=== PATIENT | female | born 1980 | race Caucasian/White ===

== ENCOUNTER 2021-10-18 17:19 | Inpatient (IN) ==
[2021-10-18 18:30] LABS: Basophils % 0.7 %; Eosinophils # 0.1 K/mcL (0.0-0.6); Eosinophils % 2.1 %; Hematocrit 38.8 % (35.3-44.9); Hemoglobin 12.7 g/dL (11.5-15.4); Immature Granulocytes % 0.2 % (0-4); Lymphocytes # 0.8 K/mcL (0.6-4.6); Lymphocytes % 18.2 %; Mean Corpuscular HGB Conc 32.7 g/dL (31.6-35.5); Mean Corpuscular Hemoglobin 27.7 pg (28.0-33.3); Mean Corpuscular Volume 84.5 fL (83.0-100.0); Mean Platelet Volume 9.9 fL (9.4-12.4); Monocytes # 0.2 K/mcL (0.0-1.3); Monocytes % 5.7 %; Neutrophils # 3.1 K/mcL (1.6-8.9); Platelet Count 242 K/mcL (140-400); Red Blood Count 4.59 M/mcL (3.82-4.97); Red Cell Distribution Width 13.3 % (11.5-14.5); Segmented Neutrophils % 73.1 %; White Blood Count 4.2 K/mcL (4.3-11.1)
[2021-10-18 18:43] LABS: BUN/Creatinine Ratio 12 (6-26); Blood Urea Nitrogen 9 mg/dL (6-20); Calcium 9.8 mg/dL (8.6-10.3); Carbon Dioxide 22 mEq/L (23-29); Chloride 99 mEq/L (98-107); Glucose 61 mg/dL (70-105); Osmolality,Calculated 281 (280-300); Potassium 4.3 mEq/L (3.5-5.1); Sodium 137 mEq/L (136-145); eGFR For African Americans > 60 (> 60); eGFR For Non-African Americans > 60 (> 60)
[2021-10-18 19:00] LABS: Bilirubin,Urine Negative (Negative); Blood,Urine Negative (Negative); Clarity,Urine Clear (Clear); Color,Urine Light-Yellow (Yellow); Glucose,Urine (UA) Normal (Normal); Ketones,Urine >150 mg/dL (Negative); Leukocyte Esterase,Urine Negative (Negative); Mucus,Urine Few per lpf (None-Few); Nitrite,Urine Negative (Negative); PH,Urine 5.5 pH Units (5.0-8.0); Protein,Urine 30 mg/dL (Neg-Trace); RBC,Urine 0-3 per hpf (0-3); Specific Gravity,Urine 1.023 (1.010-1.025); Squamous Epithelial Cell,Urine Few per hpf (None-Few); Urobilinogen,Urine Normal (Normal); WBC,Urine 0-3 per hpf (0-3)
[2021-10-18] MEDS: 0.9 % Sodium Chloride 1,000 ML IVC SCH (22:53)
[2021-10-18] MEDS ORDERED: Ondansetron 4 MG/2 ML VIAL IVP ONE (23:28)
[2021-10-19] MEDS ORDERED: Isovue-370 500 ML BOTTLE IVP ONE (00:40)
[2021-10-19] MEDS ORDERED: Prochlorperazine 10 MG/2 ML VIAL IVP PRN (04:44)
[2021-10-19] MEDS ORDERED: Ondansetron 4 MG/2 ML VIAL IVP PRN (04:50)
[2021-10-19] MEDS ORDERED: Metoclopramide 10 MG/2 ML VIAL IVP ONE (04:51)
[2021-10-19] MEDS ORDERED: D5% in Water 1,000 ML IVC PRN ×2 (05:01→18:25)
[2021-10-19] MEDS ORDERED: Dextrose Gel 15 GM/37.5 ML TUBE PO PRN ×4 (05:01→18:25)
[2021-10-19] MEDS ORDERED: *HR* Dextrose 50 % in Water (Syg) 50 ML SYRINGE IVP PRN ×2 (05:01→18:25)
[2021-10-19] MEDS ORDERED: Naloxone 0.4 MG/ML INJ IVP PRN ×2 (05:03→18:25)
[2021-10-19] MEDS ORDERED: Ketorolac 30 MG/ML VIAL IVP PRN (06:00)
[2021-10-19] MEDS: 0.9 % Sodium Chloride 1,000 ML IVC SCH ×2 (06:44→19:42)
[2021-10-19 07:13] LABS: Estimated Average Glucose 103 mg/dl; Hemoglobin A1C 5.2 %
[2021-10-19] MEDS: Acetaminophen IV 1,000 MG/100 ML BAG IVPB SCH ×2 (07:57→15:00)
[2021-10-19] MEDS ORDERED: ceFAZolin 2,000 MG in Water for inj. (sterile) 20 ML IVP ONE (08:05)
[2021-10-19 10:44] LABS: Influenza A PCR Negative (Negative); Influenza B PCR Negative (Negative); Resp. Syncytial Virus PCR Negative (Negative)
[2021-10-19 10:58] LABS: SARS-CoV-2 by PCR (In House) Negative (Negative)
[2021-10-19] MEDS ORDERED: *HR* HYDROmorphone PF 0.5 MG/0.5 ML SYRINGE IVP PRN (11:00)
[2021-10-19] MEDS ORDERED: Dexmedetomidine HCl 400 MCG/100 ML MLS IVC ONE (13:21)
[2021-10-19] MEDS ORDERED: *HR* Propofol 200 MG/20 ML VIAL IVP ONE (13:25)
[2021-10-19] MEDS ORDERED: *HR* Midazolam HCl 2 MG/2 ML VIAL ONE (13:25)
[2021-10-19] MEDS ORDERED: *HR* Succinylcholine 200 MG/10 ML VIAL IVP ONE (13:33)
[2021-10-19] MEDS ORDERED: Lidocaine -MPF 2% 5 ML VIAL ONE (13:33)
[2021-10-19] MEDS ORDERED: Ondansetron 4 MG/2 ML VIAL ONE (13:33)
[2021-10-19] MEDS ORDERED: Acetaminophen IV 1,000 MG/100 ML BAG IVPB ONE (14:25)
[2021-10-19] MEDS ORDERED: *HR* Rocuronium Bromide 50 MG/5 ML VIAL ONE ×2 (14:31→15:55)
[2021-10-19] MEDS ORDERED: 0.9 % Sodium Chloride 1,000 ML IVC SCH (15:58)
[2021-10-19] MEDS ORDERED: *HR* LORazepam 2 MG/ML VIAL IVP PRN (17:16)
[2021-10-19] MEDS ORDERED: *HR* HYDROmorphone (PF) 1 MG/ML SYRINGE ONE (17:33)
[2021-10-19] MEDS ORDERED: *HR* HYDROmorphone 2 MG/ML SYRINGE IVP ONE (17:34)
[2021-10-19] MEDS: *HR* Heparin 5,000 UNIT/ML VIAL SQ SCH (19:44)
[2021-10-19] MEDS: Ketorolac 30 MG/ML VIAL IVP PRN (19:47)
[2021-10-19] MEDS: Ondansetron 4 MG/2 ML VIAL IVP PRN (19:56)
[2021-10-19 20:06] LABS: INR 1.3; Prothrombin Time 14.9 Seconds (9.4-12.1)
[2021-10-20] MEDS: ceFAZolin 1,000 MG in 0.9 % Sodium Chloride Mini Bag 100 ML IVP SCH ×3 (00:23→17:21)
[2021-10-20] MEDS: Acetaminophen IV 1,000 MG/100 ML BAG IVPB SCH ×4 (00:24→20:41)
[2021-10-20 04:57] LABS: Hematocrit 35.7 % (35.3-44.9); Hemoglobin 11.9 g/dL (11.5-15.4); Mean Corpuscular HGB Conc 33.3 g/dL (31.6-35.5); Mean Corpuscular Hemoglobin 28.5 pg (28.0-33.3); Mean Corpuscular Volume 85.4 fL (83.0-100.0); Mean Platelet Volume 10.3 fL (9.4-12.4); Platelet Count 226 K/mcL (140-400); Red Blood Count 4.18 M/mcL (3.82-4.97); Red Cell Distribution Width 13.4 % (11.5-14.5)
[2021-10-20 04:58] LABS: White Blood Count 9.1 K/mcL (4.3-11.1)
[2021-10-20 05:08] LABS: Alanine Aminotransferase 11 Units/L (7-52); Albumin 3.4 g/dL (3.5-5.7); Albumin/Globulin Ratio 1.3 (1.1-2.2); Alkaline Phosphatase 40 Units/L (34-104); Aspartate Amino Transferase 15 Units/L (13-39); BUN/Creatinine Ratio 14 (6-26); Bilirubin,Total 0.3 mg/dL (0.3-1.0); Blood Urea Nitrogen 10 mg/dL (6-20); Calcium 8.3 mg/dL (8.6-10.3); Carbon Dioxide 17 mEq/L (23-29); Chloride 104 mEq/L (98-107); Cholesterol 124 mg/dL (< 200); Globulin 2.7 g/dL (2.4-3.5); Glucose 79 mg/dL (70-105); HDL Cholesterol 25 mg/dL (40-59); LDL Cholesterol,Calculated 81 mg/dL (< 100); Magnesium 1.6 mg/dL (1.6-2.6); Osmolality,Calculated 278 (280-300); Potassium 4.4 mEq/L (3.5-5.1); Sodium 135 mEq/L (136-145); Total Protein 6.1 g/dL (6.4-8.9); Triglycerides 88 mg/dL (< 150); eGFR For African Americans > 60 (> 60); eGFR For Non-African Americans > 60 (> 60)
[2021-10-20] MEDS: *HR* Heparin 5,000 UNIT/ML VIAL SQ SCH ×2 (05:34→17:20)
[2021-10-20] MEDS: Ondansetron 4 MG/2 ML VIAL IVP PRN ×3 (05:44→17:19)
[2021-10-20] MEDS: Ketorolac 30 MG/ML VIAL IVP PRN ×2 (05:45→17:20)
[2021-10-20] MEDS: 0.9 % Sodium Chloride 1,000 ML IVC SCH ×2 (06:00→21:41)
[2021-10-20] MEDS: Pantoprazole 40 MG VIAL IVP SCH (09:03)
[2021-10-20] MEDS ORDERED: Chloraseptic Spray 177 ML BOTTLE MM PRN (09:10)
[2021-10-20] MEDS: *HR* Buprenorphine HCl 8 MG TAB.SUBL SL SCH (10:23)
[2021-10-21] MEDS: Acetaminophen IV 1,000 MG/100 ML BAG IVPB SCH ×5 (00:32→23:58)
[2021-10-21] MEDS: ceFAZolin 1,000 MG in 0.9 % Sodium Chloride Mini Bag 100 ML IVP SCH ×4 (00:32→23:59)
[2021-10-21] MEDS: D5% in 0.9% NACL 1,000 ML IVC SCH ×3 (00:33→21:20)
[2021-10-21] MEDS: Ketorolac 30 MG/ML VIAL IVP PRN ×3 (00:52→17:14)
[2021-10-21] MEDS: Ondansetron 4 MG/2 ML VIAL IVP PRN ×4 (00:53→17:35)
[2021-10-21 06:12] LABS: Basophils % 0.3 %; Eosinophils # 0.3 K/mcL (0.0-0.6); Eosinophils % 4.3 %; Hematocrit 33.4 % (35.3-44.9); Hemoglobin 10.6 g/dL (11.5-15.4); Immature Granulocytes % 0.3 % (0-4); Lymphocytes # 0.9 K/mcL (0.6-4.6); Lymphocytes % 12.3 %; Mean Corpuscular HGB Conc 31.7 g/dL (31.6-35.5); Mean Corpuscular Hemoglobin 27.4 pg (28.0-33.3); Mean Corpuscular Volume 86.3 fL (83.0-100.0); Mean Platelet Volume 9.3 fL (9.4-12.4); Monocytes # 0.7 K/mcL (0.0-1.3); Monocytes % 9.4 %; Neutrophils # 5.1 K/mcL (1.6-8.9); Platelet Count 201 K/mcL (140-400); Red Blood Count 3.87 M/mcL (3.82-4.97); Red Cell Distribution Width 14.3 % (11.5-14.5); Segmented Neutrophils % 73.4 %; White Blood Count 6.9 K/mcL (4.3-11.1)
[2021-10-21] MEDS: *HR* Heparin 5,000 UNIT/ML VIAL SQ SCH ×2 (06:21→17:15)
[2021-10-21 06:29] LABS: BUN/Creatinine Ratio 9 (6-26); Blood Urea Nitrogen 7 mg/dL (6-20); Calcium 7.8 mg/dL (8.6-10.3); Carbon Dioxide 18 mEq/L (23-29); Chloride 108 mEq/L (98-107); Glucose 120 mg/dL (70-105); Osmolality,Calculated 281 (280-300); Potassium 3.8 mEq/L (3.5-5.1); Sodium 136 mEq/L (136-145); eGFR For African Americans > 60 (> 60); eGFR For Non-African Americans > 60 (> 60)
[2021-10-21] MEDS: Pantoprazole 40 MG VIAL IVP SCH (10:11)
[2021-10-21] MEDS: *HR* Buprenorphine HCl 8 MG TAB.SUBL SL SCH (10:13)
[2021-10-22] MEDS: Ketorolac 30 MG/ML VIAL IVP PRN ×2 (02:38→13:12)
[2021-10-22] MEDS: Ondansetron 4 MG/2 ML VIAL IVP PRN ×3 (02:39→17:57)
[2021-10-22 05:24] LABS: Basophils % 0.2 %; Eosinophils # 0.3 K/mcL (0.0-0.6); Eosinophils % 5.8 %; Hematocrit 28.7 % (35.3-44.9); Hemoglobin 9.3 g/dL (11.5-15.4); Immature Granulocytes % 0.2 % (0-4); Lymphocytes # 0.8 K/mcL (0.6-4.6); Lymphocytes % 18.2 %; Mean Corpuscular HGB Conc 32.4 g/dL (31.6-35.5); Mean Corpuscular Hemoglobin 27.9 pg (28.0-33.3); Mean Corpuscular Volume 86.2 fL (83.0-100.0); Mean Platelet Volume 9.2 fL (9.4-12.4); Monocytes # 0.4 K/mcL (0.0-1.3); Monocytes % 8.1 %; Platelet Count 187 K/mcL (140-400); Red Blood Count 3.33 M/mcL (3.82-4.97); Red Cell Distribution Width 14.4 % (11.5-14.5); Segmented Neutrophils % 67.5 %; White Blood Count 4.5 K/mcL (4.3-11.1)
[2021-10-22 05:50] LABS: BUN/Creatinine Ratio 8 (6-26); Blood Urea Nitrogen 4 mg/dL (6-20); Calcium 7.6 mg/dL (8.6-10.3); Carbon Dioxide 21 mEq/L (23-29); Chloride 112 mEq/L (98-107); Glucose 110 mg/dL (70-105); Osmolality,Calculated 288 (280-300); Potassium 3.3 mEq/L (3.5-5.1); Sodium 140 mEq/L (136-145); eGFR For African Americans > 60 (> 60); eGFR For Non-African Americans > 60 (> 60)
[2021-10-22] MEDS: Acetaminophen IV 1,000 MG/100 ML BAG IVPB SCH ×5 (05:50→23:40)
[2021-10-22] MEDS: *HR* Heparin 5,000 UNIT/ML VIAL SQ SCH ×2 (05:51→17:57)
[2021-10-22] MEDS: ceFAZolin 1,000 MG in 0.9 % Sodium Chloride Mini Bag 100 ML IVP SCH ×3 (08:06→23:43)
[2021-10-22] MEDS: Pantoprazole 40 MG VIAL IVP SCH (08:07)
[2021-10-22] MEDS: *HR* Buprenorphine HCl 8 MG TAB.SUBL SL SCH (08:08)
[2021-10-22] MEDS: D5% in 0.9% NACL 1,000 ML IVC SCH ×2 (09:37→21:25)
[2021-10-22] MEDS ORDERED: POTASSIUM CHLORIDE IN 0.9%NACL 40 MEQ/1,000 ML IV.SOLN IV ONE (11:45)
[2021-10-22] MEDS: 0.9 % Sodium Chloride w KCl 40 MEQ/1,000 ML MLS IVC SCH (16:19)
[2021-10-22] MEDS: 0.9 % Sodium Chloride 1,000 ML IVC SCH (19:30)
[2021-10-22] MEDS ORDERED: Prochlorperazine 10 MG/2 ML VIAL IVP PRN (20:50)
[2021-10-23 02:02] LABS: Basophils % 0.4 %; Eosinophils # 0.2 K/mcL (0.0-0.6); Eosinophils % 3.3 %; Hematocrit 28.9 % (35.3-44.9); Hemoglobin 9.4 g/dL (11.5-15.4); Immature Granulocytes % 0.4 % (0-4); Lymphocytes # 0.8 K/mcL (0.6-4.6); Lymphocytes % 14.5 %; Mean Corpuscular HGB Conc 32.5 g/dL (31.6-35.5); Mean Corpuscular Hemoglobin 27.4 pg (28.0-33.3); Mean Corpuscular Volume 84.3 fL (83.0-100.0); Mean Platelet Volume 9.5 fL (9.4-12.4); Monocytes # 0.4 K/mcL (0.0-1.3); Monocytes % 7.3 %; Neutrophils # 3.9 K/mcL (1.6-8.9); Platelet Count 221 K/mcL (140-400); Red Blood Count 3.43 M/mcL (3.82-4.97); Segmented Neutrophils % 74.1 %; White Blood Count 5.2 K/mcL (4.3-11.1)
[2021-10-23 02:22] LABS: BUN/Creatinine Ratio 8 (6-26); Blood Urea Nitrogen 4 mg/dL (6-20); Calcium 7.5 mg/dL (8.6-10.3); Carbon Dioxide 22 mEq/L (23-29); Chloride 111 mEq/L (98-107); Glucose 140 mg/dL (70-105); Magnesium 1.5 mg/dL (1.6-2.6); Osmolality,Calculated 285 (280-300); Potassium 3.5 mEq/L (3.5-5.1); Sodium 138 mEq/L (136-145); eGFR For African Americans > 60 (> 60); eGFR For Non-African Americans > 60 (> 60)
[2021-10-23] MEDS: Ondansetron 4 MG/2 ML VIAL IVP PRN ×3 (03:34→22:20)
[2021-10-23] MEDS: Ketorolac 30 MG/ML VIAL IVP PRN ×3 (03:34→22:19)
[2021-10-23] MEDS: 0.9 % Sodium Chloride w KCl 40 MEQ/1,000 ML MLS IVC SCH (03:34)
[2021-10-23] MEDS: Acetaminophen IV 1,000 MG/100 ML BAG IVPB SCH ×2 (06:02→11:31)
[2021-10-23] MEDS: *HR* Heparin 5,000 UNIT/ML VIAL SQ SCH ×2 (06:10→22:24)
[2021-10-23] MEDS: D5% in 0.9% NACL 1,000 ML IVC SCH ×2 (06:10→22:21)
[2021-10-23] MEDS ORDERED: Prochlorperazine 10 MG/2 ML VIAL IVP PRN (06:19)
[2021-10-23] MEDS: *HR* Buprenorphine HCl 8 MG TAB.SUBL SL SCH (07:58)
[2021-10-23] MEDS: Pantoprazole 40 MG VIAL IVP SCH (07:58)
[2021-10-23] MEDS: ceFAZolin 1,000 MG in 0.9 % Sodium Chloride Mini Bag 100 ML IVP SCH ×2 (08:01→15:51)
[2021-10-24] MEDS: *HR* Heparin 5,000 UNIT/ML VIAL SQ SCH (05:07)
[2021-10-24 05:48] LABS: Basophils % 0.7 %; Eosinophils # 0.3 K/mcL (0.0-0.6); Eosinophils % 6.6 %; Hematocrit 29.7 % (35.3-44.9); Hemoglobin 9.9 g/dL (11.5-15.4); Immature Granulocytes % 0.2 % (0-4); Lymphocytes # 0.9 K/mcL (0.6-4.6); Lymphocytes % 19.4 %; Mean Corpuscular HGB Conc 33.3 g/dL (31.6-35.5); Mean Corpuscular Hemoglobin 28.1 pg (28.0-33.3); Mean Corpuscular Volume 84.4 fL (83.0-100.0); Mean Platelet Volume 9.4 fL (9.4-12.4); Monocytes # 0.4 K/mcL (0.0-1.3); Monocytes % 8.3 %; Platelet Count 260 K/mcL (140-400); Red Blood Count 3.52 M/mcL (3.82-4.97); Red Cell Distribution Width 14.2 % (11.5-14.5); Segmented Neutrophils % 64.8 %; White Blood Count 4.6 K/mcL (4.3-11.1)
[2021-10-24 06:07] LABS: BUN/Creatinine Ratio 6 (6-26); Blood Urea Nitrogen 3 mg/dL (6-20); Calcium 7.8 mg/dL (8.6-10.3); Carbon Dioxide 25 mEq/L (23-29); Chloride 109 mEq/L (98-107); Glucose 98 mg/dL (70-105); Magnesium 1.7 mg/dL (1.6-2.6); Osmolality,Calculated 285 (280-300); Potassium 3.5 mEq/L (3.5-5.1); Sodium 139 mEq/L (136-145); eGFR For African Americans > 60 (> 60); eGFR For Non-African Americans > 60 (> 60)
[2021-10-24] MEDS: *HR* Buprenorphine HCl 8 MG TAB.SUBL SL SCH (08:36)
[2021-10-24] MEDS: Pantoprazole 40 MG VIAL IVP SCH (09:55)
[2021-10-24] MEDS: D5% in 0.9% NACL 1,000 ML IVC SCH (09:55)
[2021-10-24] MEDS: ceFAZolin 1,000 MG in 0.9 % Sodium Chloride Mini Bag 100 ML IVP SCH (09:55)
[2021-10-24 14:32] VITALS: BP 119/81; PULSE 99; TEMP 99.1; O2SAT 91
[2021-10-24 17:17] LABS: HCV Quant Log NOT DETECTED log IU/mL
[2021-10-26 07:53] LABS: HCV Quant Interpretation NOT DETECTED (Not Detected)
== END 2021-10-24 17:00 | disposition home or self-care (01) | DRG 230 ==
LOC: EMEROOARM 17:19 → 3ANU 17:19 → SUATTDRO 10-19 08:24
PROVIDERS: ADMIT Internal Medicine; ATTEND General Practice